=== PATIENT | male | born 1990 | race Caucasian/White ===

== ENCOUNTER 2016-09-06 19:52 | Emergency (ER) | payer OTHER ==
--- NOTE | 2016-09-06 20:36 | ED ORDER SUMMARY ---
..... Patient: ARIADNA COX [facility] VisitID: [id number] [address] [place] [address] 26y, M Registration Date/Time: 09/06/2016 ORDER SHEET Weight: 122.4 kg (stated) Allergies: Codeine, Naprosyn, Tramadol GENERAL ORDERS: Tibia/Fibula Left Urgent (20:20 09/06/2016 EKoroleva P.A.-C) (Ack 20:26 [facility] ER Material Clerk) (20:28 RFay) MEDICATION ORDERS: Tdap IM 0.5 mL (NOW, per protocol) (20:20 09/06/2016 EKoroleva P.A.-C) (20:37 DDavis R.N.) Tetanus IMmune Globulin IM 250 units (NOW) (20:20 09/06/2016 EKoroleva P.A.-C) (20:40 DDavis R.N.) Tylenol PO 1,000 mg (NOW) (20:20 09/06/2016 EKoroleva P.A.-C) (20:37 DDavis R.N.) Amoxicillin PO 500 mg (NOW) (20:20 09/06/2016 EKoroleva P.A.-C) (20:37 DDavis R.N.) Bactrim DS PO (Tablet 800-160 mg) 1 tab (NOW) (20:20 09/06/2016 EKoroleva P.A.-C) (20:38 DDavis R.N.) IV FLUIDS: ORDER SHEET NOTES: [Electronically signed by Dasia Chou PRosauraA.-C (20:41 09/06/2016)] [Electronically signed by Christofer Mills R.N. (20:53 09/06/2016)] [Electronically locked/signed by Christofer Mills R.N. (20:53 09/06/2016)]
--- NOTE | 2016-09-06 20:36 | ED ORDER SUMMARY ---
..... Patient: ARIADNA COX OrderSheet [facility] VisitID: [id number] [address] [place] [address] 26y, M Registration Date/Time: 09/06/2016 ORDER SHEET Weight: 122.4 kg (stated) Allergies: Codeine, Naprosyn, Tramadol GENERAL ORDERS: Tibia/Fibula Left Urgent (20:20 09/06/2016 EKoroleva P.A.-C) (Ack 20:26 [facility] ER Checker) (20:28 RFay) MEDICATION ORDERS: Tdap IM 0.5 mL (NOW, per protocol) (20:20 09/06/2016 EKoroleva P.A.-C) (20:37 DDavis R.N.) Tetanus IMmune Globulin IM 250 units (NOW) (20:20 09/06/2016 EKoroleva P.A.-C) (20:40 DDavis R.N.) Tylenol PO 1,000 mg (NOW) (20:20 09/06/2016 EKoroleva P.A.-C) (20:37 DDavis R.N.) Amoxicillin PO 500 mg (NOW) (20:20 09/06/2016 EKoroleva P.A.-C) (20:37 DDavis R.N.) Bactrim DS PO (Tablet 800-160 mg) 1 tab (NOW) (20:20 09/06/2016 EKoroleva P.A.-C) (20:38 DDavis R.N.) IV FLUIDS: ORDER SHEET NOTES: [Electronically signed by Dasia Chou PRosauraA.-C (20:41 09/06/2016)] [Electronically signed by Christofer Mills R.N. (20:53 09/06/2016)] [Electronically locked/signed by Christofer Mills R.N. (20:53 09/06/2016)]
--- NOTE | 2016-09-06 20:36 | ED NURSING NOTES ---
Clinical Report - Nurses [facility] [address] [place] [address] 09/06/2016 19:56 Patient: ARIADNA COX TRIAGE Triage time 20:10. Acuity: LEVEL 4. Chief Complaint: INJURY TO THE LEFT LEG. Alert. HUMBERTO COMA SCORE: [place] Coma Scale: 15- eyes open spontaneously (4); best verbal response- oriented x 4 (5); best motor response- obeys commands (6). --20:12 Christofer Mills R.N. 20:09 09/06/16. BP: 157/99 taken while sitting. HR: 96. RR: 24 (regular and unlabored). O2 saturation: 97% on room air. Temp: 98.4 F (oral). Pain level now: 12/03. --20:12 Christofer Mills R.N. Weight: 122.4 kg stated. Height/Length: 77 inches Per Patient. BMI: 32. --20:10 Christofer Mills R.N. Medications Xanax Oral 1 mg, 2x a day, last dose 0900. --20:12 Christofer Mills R.N. ClonazePAM Oral. --20:13 Christofer Mills R.N. Depakote Oral. --20:13 Christofer Mills R.N. Adderall Oral. --20:13 Christofer Mills R.N. Allergies Codeine. ("makes it hard to breath" ) Naprosyn.(hives) Tramadol. ("messes with my breathing" ) --20:12 Christofer Mills R.N. History Arrived by private vehicle. Historian: patient. Unaccompanied. This occurred yesterday. Mechanism of injury: (puncture). ( pt states that he was opening a box with a pair of scissors and "accidently stabbed myself in the leg".). SOCIAL HX: Heavy tobacco smoker (cigarette)- 1 pack per day. Occasional alcohol use. ( denies SI/HI, states that he feels safe at home.). SELF HARM ASSESSMENT: A self harm assessment was performed. The patient answered "no" to the question "Do you have thoughts of harming or killing yourself?" and "Are you here because you tried to hurt yourself?". --20:12 Christofer Mills R.N. PAST MEDICAL HX: Tetanus status: unknown. --20:14 Christofer Mills R.N. PROBLEMS: Back Pain. Myofascial Strain. Nephrolithiasis. Anxiety Reaction. Panic disorder. Substance Abuse. Sleep Apnea. Depression. Asthma. Pyelonephritis. Epididymitis. Gastritis. Cancer. Anxiety. --20:13 Christofer Mills R.N. ADDITIONAL SURGERIES: Adenoidectomy. Cholecystectomy. Foot. Rhinoplasty. Sinus Surgery. Throat shaved related to sleep apnea. Tonsillectomy. Uvula removed. --20:14 Christofer Mills R.N. Interventions ID band on patient. To room. --20:12 Christofer Mills R.N. PHYSICAL ASSESSMENT GENERAL / NEURO / PSYCH: Oriented X 4. Alert. SKIN: Skin is warm and dry. Skin not intact. ( left lower leg puncture wound, not currenty bleeding). --20:15 Christofer Mills R.N. EXTREMITIES: Neuro-vascular status intact to the extremity. --20:16 Christofer Mills R.N. NURSING PROGRESS NOTES Neuro-vascular extremity check. Two patient identifiers checked. Call light placed in reach. Side rails up x 1. Bed placed in lowest position. Brakes of bed on. Patient ready for evaluation- chart flagged. Patient waiting for evaluation. --20:15 Christofer Mills R.N. 20:32 09/06/2016 Tylenol (Acetaminophen) PO Tablets 1000 mg given. Allergies verified and confirmed 5 rights. --20:37 Christofer Mills R.N. <<STRICKEN ENTRY-- 20:32 09/06/2016 Amoxicillin PO Tablets 500 mg given. Allergies verified and confirmed 5 rights. --20:37 Christofer Mills R.N. --END STRIKE>> Correction. --20:39 Christofer Mills R.N. 20:32 09/06/2016 Bactrim DS (Sulfamethoxazole-TMP DS) PO Tablets 1 tab given. Allergies verified and confirmed 5 rights. --20:38 Christofer Mills R.N. 20:32 09/06/2016 Amoxicillin PO Capsules 500 mg given. Allergies verified and confirmed 5 rights. --20:39 Christofer Mills R.N. 20:37 09/06/2016 TDAP IM 0.5 mL given. (Lot#: [id number], expiration date: 09/03/2018, Fitter'S Assistant: sanofi pasteur). Given in the left gluteus frank. Allergies verified and confirmed 5 rights. Vaccine information statement provided to the patient. --20:37 Christofer Mills R.N. 20:37 09/06/2016 Tetanus Immune Globulin IM 250 unit given. (Lot#: [id number], expiration date: 11/09/2018). Given in the left gluteus frank. Allergies verified and confirmed 5 rights. Vaccine information statement provided to the patient (Fitter'S Assistant: [employer]). --20:40 Christofer Mills R.N. ( I cleansed the wound surface and covered it with a bandage.). --20:52 Christofer Mills R.N. DISPOSITION / DISCHARGE Departure time: 20:52. Condition at departure: stable. No learning barriers present. Discharge instructions provided and reviewed. Reviewed warnings. Reviewed medication(s) side effects, precautions, dosing and course information. Prescription(s) given to the patient. Treatments reviewed. Reviewed referrals for followup. Patient verbalized understanding. Written instructions provided in Kiny[place]anda. The patient was discharged home and unaccompanied at time of discharge. He left the Emergency Department ambulatory and via private vehicle. Patient driving. --20:53 Christofer Mills R.N. 20:09 09/06/16. BP: 157/99 taken while sitting. HR: 96. RR: 24 (regular and unlabored). O2 saturation: 97% on room air. Temp: 98.4 F (oral). Pain level now: 12/03. --20:53 Christofer Mills R.N. Locked/Released at 09/06/2016 20:53 by Christofer Mills R.N.
--- NOTE | 2016-09-06 20:36 | ED CLINICAL REPORT ---
Clinical Report - Physicians/Mid Levels [facility] [address] [place] [place] [address] 09/06/2016 19:56 Patient: ARIADNA COX Time Seen: 20:34 Sep 06 2016. Arrived- By private vehicle. Historian- patient. HISTORY OF PRESENT ILLNESS Chief Complaint: Injury to the left ankle. The injury happened yesterday. The patient sustained a direct blow and crush injury. Occurred at home. Patient is experiencing mild pain. Patient denies injury to the head. (patient sustained an injury yesterday on 05 September from a scissors while at home. Denies any suicidal ideation. Reports placing dressings on the wound yesterday, now worsening of pain and swelling. He denies prior injury to the area. Denies fevers or chills.). REVIEW OF SYSTEMS The patient has no pain on weight bearing. All systems otherwise negative, except as recorded above. PAST HISTORY See nurses notes. The patient has not had a prior injury to the same area. Tetanus immunization status is unknown. SOCIAL HISTORY Smoker- current status unknown. Alcohol use. ADDITIONAL NOTES The nursing notes have been reviewed. PHYSICAL EXAM Vital Signs: 09/06/2016 20:09 BP: 157/99. HR: 96. RR: 24. O2 saturation: 97%. Temp: 98.4 F. Pain level now: 8/10. Appearance: Alert. Head: Head atraumatic. ENT: Ears normal. CVS: Normal heart rate and rhythm. Heart sounds normal. Respiratory: No respiratory distress. Breath sounds normal. Abdomen: No visible injury. Soft. Skin: Skin warm. Extremities: Foot/ankle soft-tissue tenderness. Left leg. (medial/ anterior aspect 1 cm partial thickness lac with mild surrounding erythema/ edema.). Left ankle. No tenderness or swelling. Left foot. Neurovascular intact distally. No tenderness or swelling. No limitation of weight bearing. No foot injury. Gait: No limping gait. Neuro, Vascular and Tendons: Vascular status intact. Motor intact. LABS, X-RAYS, AND EKG Lt Tib/Fib X-ray: (IMPRESSION: 1. Normal left tibia and fibula. Electronically Final signed by:Zen Gerardo MD 09/06/2016 8:33:24 PM). PROGRESS AND PROCEDURES Course of Care: Afebrile no lymphadenopathy, no signs of fracture on x-ray. Tetanus immunization and immunoglobulin given in the emergency department. Patient stable. started on antibiotics. No history of MRSA. To elevate lower extremity. Good passive range of motion, distal sensation and good distal dorsalis pedal pulse. 09/06/2016 20:09 BP: 157/99. HR: 96. RR: 24. O2 saturation: 97%. Temp: 98.4 F. Pain level now: 12/03. Patient is stable. Symptoms better. Patient/family counseled. Disposition: Discharged. CLINICAL IMPRESSION Infected puncture wound to the left ankle. Delayed treatment. No infected puncture wound with foreign body present. Not penetrating into body cavity. INSTRUCTIONS Apply ice. Protect wound and keep wound area clean. Apply bacitracin twice daily. Elevate affected areas above chest level. (elevate your leg do not wrap your leg very tight). Warnings: TETANUS: You were given a tetanus shot during your visit. Make a note for future reference. Prescription Medications: Hydrocodone/APAP 5mg / 325mg: take 1 orally every 12 hours. Dispense five (5). No refill. Cephalexin 500 mg: take 1 capsule orally every 8 hours for 7 days. No refill. Ibuprofen 800 mg tablets: take 1 tablet orally every 8 hours for 5 days, as needed for pain. Dispense fifteen (15). No refill. Bactrim DS 800 mg / 160 mg: take 1 tablet orally every 12 hours for 7 days. No refill. Substitution is permissible. Follow-up: Follow up with your doctor in three days as needed and for wound check. (Electronically signed by Dasia Chou P.A.-C 09/06/2016 20:41)
--- NOTE | 2016-09-06 20:36 | ED NURSING NOTES ---
Clinical Report - Nurses [facility] [address] [place] [address] 09/06/2016 19:56 Patient: ARIADNA COX TRIAGE Triage time 20:10. Acuity: LEVEL 4. Chief Complaint: INJURY TO THE LEFT LEG. Alert. HUMBERTO COMA SCORE: [place] Coma Scale: 15- eyes open spontaneously (4); best verbal response- oriented x 4 (5); best motor response- obeys commands (6). --20:12 Christofer Mills R.N. 20:09 09/06/16. BP: 157/99 taken while sitting. HR: 96. RR: 24 (regular and unlabored). O2 saturation: 97% on room air. Temp: 98.4 F (oral). Pain level now: 12/03. --20:12 Christofer Mills R.N. Weight: 122.4 kg stated. Height/Length: 77 inches Per Patient. BMI: 32. --20:10 Christofer Mills R.N. Medications Xanax Oral 1 mg, 2x a day, last dose 0900. --20:12 Christofer Mills R.N. ClonazePAM Oral. --20:13 Christofer Mills R.N. Depakote Oral. --20:13 Christofer Mills R.N. Adderall Oral. --20:13 Christofer Mills R.N. Allergies Codeine. ("makes it hard to breath" ) Naprosyn.(hives) Tramadol. ("messes with my breathing" ) --20:12 Christofer Mills R.N. History Arrived by private vehicle. Historian: patient. Unaccompanied. This occurred yesterday. Mechanism of injury: (puncture). ( pt states that he was opening a box with a pair of scissors and "accidently stabbed myself in the leg".). SOCIAL HX: Heavy tobacco smoker (cigarette)- 1 pack per day. Occasional alcohol use. ( denies SI/HI, states that he feels safe at home.). SELF HARM ASSESSMENT: A self harm assessment was performed. The patient answered "no" to the question "Do you have thoughts of harming or killing yourself?" and "Are you here because you tried to hurt yourself?". --20:12 Christofer Mills R.N. PAST MEDICAL HX: Tetanus status: unknown. --20:14 Christofer Mills R.N. PROBLEMS: Back Pain. Myofascial Strain. Nephrolithiasis. Anxiety Reaction. Panic disorder. Substance Abuse. Sleep Apnea. Depression. Asthma. Pyelonephritis. Epididymitis. Gastritis. Cancer. Anxiety. --20:13 Christofer Mills R.N. ADDITIONAL SURGERIES: Adenoidectomy. Cholecystectomy. Foot. Rhinoplasty. Sinus Surgery. Throat shaved related to sleep apnea. Tonsillectomy. Uvula removed. --20:14 Christofer Mills R.N. Interventions ID band on patient. To room. --20:12 Christofer Mills R.N. PHYSICAL ASSESSMENT GENERAL / NEURO / PSYCH: Oriented X 4. Alert. SKIN: Skin is warm and dry. Skin not intact. ( left lower leg puncture wound, not currenty bleeding). --20:15 Christofer Mills R.N. EXTREMITIES: Neuro-vascular status intact to the extremity. --20:16 Christofer Mills R.N. NURSING PROGRESS NOTES Neuro-vascular extremity check. Two patient identifiers checked. Call light placed in reach. Side rails up x 1. Bed placed in lowest position. Brakes of bed on. Patient ready for evaluation- chart flagged. Patient waiting for evaluation. --20:15 Christofer Mills R.N. 20:32 09/06/2016 Tylenol (Acetaminophen) PO Tablets 1000 mg given. Allergies verified and confirmed 5 rights. --20:37 Christofer Mills R.N. <<STRICKEN ENTRY-- 20:32 09/06/2016 Amoxicillin PO Tablets 500 mg given. Allergies verified and confirmed 5 rights. --20:37 Christofer Mills R.N. --END STRIKE>> Correction. --20:39 Christofer Mills R.N. 20:32 09/06/2016 Bactrim DS (Sulfamethoxazole-TMP DS) PO Tablets 1 tab given. Allergies verified and confirmed 5 rights. --20:38 Christofer Mills R.N. 20:32 09/06/2016 Amoxicillin PO Capsules 500 mg given. Allergies verified and confirmed 5 rights. --20:39 Christofer Mills R.N. 20:37 09/06/2016 TDAP IM 0.5 mL given. (Lot#: [id number], expiration date: 09/03/2018, Ophthalmic Medical Technician: sanofi pasteur). Given in the left gluteus frank. Allergies verified and confirmed 5 rights. Vaccine information statement provided to the patient. --20:37 Christofer Mills R.N. 20:37 09/06/2016 Tetanus Immune Globulin IM 250 unit given. (Lot#: [id number], expiration date: 11/09/2018). Given in the left gluteus frank. Allergies verified and confirmed 5 rights. Vaccine information statement provided to the patient (Ophthalmic Medical Technician: [employer]er[employer]). --20:40 Christofer Mills R.N. ( I cleansed the wound surface and covered it with a bandage.). --20:52 Christofer Mills R.N. DISPOSITION / DISCHARGE Departure time: 20:52. Condition at departure: stable. No learning barriers present. Discharge instructions provided and reviewed. Reviewed warnings. Reviewed medication(s) side effects, precautions, dosing and course information. Prescription(s) given to the patient. Treatments reviewed. Reviewed referrals for followup. Patient verbalized understanding. Written instructions provided in Urdu. The patient was discharged home and unaccompanied at time of discharge. He left the Emergency Department ambulatory and via private vehicle. Patient driving. --20:53 Christofer Mills R.N. 20:09 09/06/16. BP: 157/99 taken while sitting. HR: 96. RR: 24 (regular and unlabored). O2 saturation: 97% on room air. Temp: 98.4 F (oral). Pain level now: 12/03. --20:53 Christofer Mills R.N. Locked/Released at 09/06/2016 20:53 by Christofer Mills R.N.
--- NOTE | 2016-09-06 20:37 | DIAGNOSTIC IMAGING REPORT ---
PROCEDURE: XR TIBIA AND FIBULA - LEFT INDICATION: TRAUMA/INJURY TECHNIQUE: AP and lateral views. COMPARISON: None. FINDINGS: Osseous structures are normal. IMPRESSION: 1. Normal left tibia and fibula.
--- NOTE | 2016-09-06 20:54 | ED DISCHARGE INSTRUCTIONS ---
Patient: ARIADNA COX General Instructions [facility] VisitID: [id number] [place] [address] 26y, M Registration Date/Time: 09/06/2016 Infected puncture wound to the left ankle. Delayed treatment. No infected puncture wound with foreign body present. Not penetrating into body cavity. INSTRUCTIONS Apply ice. Protect wound and keep wound area clean. Apply bacitracin twice daily. Elevate affected areas above chest level. (elevate your leg do not wrap your leg very tight). Warnings: TETANUS: You were given a tetanus shot during your visit. Make a note for future reference. Prescription Medications: Hydrocodone/APAP 5mg / 325mg: take 1 orally every 12 hours. Dispense five (5). No refill. Cephalexin 500 mg: take 1 capsule orally every 8 hours for 7 days. No refill. Ibuprofen 800 mg tablets: take 1 tablet orally every 8 hours for 5 days, as needed for pain. Dispense fifteen (15). No refill. Bactrim DS 800 mg / 160 mg: take 1 tablet orally every 12 hours for 7 days. No refill. Substitution is permissible. Follow-up: Follow up with your doctor in three days as needed and for wound check. ADDITIONAL INFORMATION Puncture Wound (General) A puncture wound is a hole through the skin. Bacteria, dirt and debris can be drawn into this wound, increasing the risk of infection. However, antibiotics are usually not prescribed for this injury unless signs of infection are already present. Therefore, it is important to observe the wound closely for the signs of infection listed below. Home Care: If your wound is on an arm, hand, leg, or foot, keep that part raised during the first 48 hours to reduce swelling and pain. Keep the wound clean and dry. If a bandage was applied and it becomes wet or dirty, replace it. Otherwise, leave it in place for the next 24 hours. You may use acetaminophen (Tylenol) or ibuprofen (Motrin, Advil) to control pain, unless another medicine was prescribed. [NOTE: If you have chronic liver or kidney disease or ever had a stomach ulcer or GI bleeding, talk with your doctor before using these medicines.] You may shower as usual. However, do not soak the area in water (no baths or swimming) during the first 48 hours. Follow Up: Most puncture wounds heal within 10 days. However, an infection may sometimes occur despite proper treatment. If small particles were drawn into the puncture wound (such as fragments of cloth, rubber, wood or dirt), an infection may occur. These fragments are very hard to find during the first exam since it is not possible to get a good look inside a puncture wound and they do not show on an X-ray. Antibiotics and a minor surgical procedure to find and remove the foreign object will be needed if this happens. Therefore, check the wound daily for the warning signs listed below. Get Prompt Medical Attention if any of the following occur: SIGNS OF INFECTION: Increasing pain in the wound Redness, swelling, pus or red lines coming from the wound Fever of 100.4F (38C) or higher, or as directed by your healthcare provider Diphtheria Toxoid Adsorbed, Pertussis Vaccine, Acellular (Adsorbed), Tetanus Toxoid, Adsorbed Suspension for injection What is this medicine? DIPHTHERIA and TETANUS TOXOIDS; PERTUSSIS VACCINE (dif THEER ee uh and TET n us TOK soids; per NADEEM nergo SEEN) is used to prevent diphtheria, tetanus, and pertussis infections. How should I use this medicine? This vaccine is for injection into a muscle. It is given by a health clinical care leader. A copy of Vaccine Information Statements will be given before each vaccination. Read this sheet carefully each time. The sheet may change frequently. Talk to your direct service provider regarding the use of this vaccine in children. While the DTP vaccine may be given to children ages 6 weeks to 7 years and the Tdap vaccine may be given to children at least 10 years old, precautions do apply. What side effects may I notice from receiving this medicine? Side effects that you should report to your doctor or health clinical care leader as soon as possible: allergic reactions like skin rash, itching or hives, swelling of the face, lips, or tongue breathing problems fever of 103 degrees F or more flu-like symptoms inconsolable crying infection pain, tingling, numbness in the hands or feet seizures swelling of arm or leg that was injected unusually weak or tired Side effects that usually do not require immediate medical attention (report these side effects to your doctor or health clinical care leader if they continue or are bothersome): fussy, irritable loss of appetite fever of 102 degrees F or less pain, tenderness, redness, swelling, or a 'knot' at site where injected vomiting What may interact with this medicine? immune globulin medicines that suppress your immune function like adalimumab, anakinra, infliximab medicines to treat cancer medicines that treat or prevent blood clots like warfarin, enoxaparin, and dalteparin steroid medicines like prednisone or cortisone What if I miss a dose? It is important not to miss your dose. Call your doctor or health clinical care leader if you are unable to keep an appointment. Where should I keep my medicine? This drug is given in a hospital or clinic and will not be stored at home. What should I tell my health care provider before I take this medicine? They need to know if you have any of these conditions: blood disorders like hemophilia fever or infection immune system problems neurologic disease seizures an unusual or allergic reaction to vaccines, thimerosal, latex, other medicines, foods, dyes, or preservatives or trying to get breast-feeding What should I watch for while using this medicine? See your health care provider for all shots of this vaccine as directed. To have protection from infection, you must have 3 shots of this vaccine plus boosters as needed. Tell your doctor right away if you have any serious or unusual side effects after getting this vaccine. Hydrocodone Bitartrate, Acetaminophen Oral tablet What is this medicine? ACETAMINOPHEN; HYDROCODONE (a set a JESSI mookie fen; monserrat droe KOE done) is a pain reliever. It is used to treat mild to moderate pain. How should I use this medicine? Take this medicine by mouth. Swallow it with a full glass of water. Follow the directions on the prescription label. If the medicine upsets your stomach, take the medicine with food or milk. Do not take more than you are told to take. Talk to your direct service provider regarding the use of this medicine in children. This medicine is not approved for use in children. What side effects may I notice from receiving this medicine? Side effects that you should report to your doctor or health clinical care leader as soon as possible: allergic reactions like skin rash, itching or hives, swelling of the face, lips, or tongue breathing problems confusion feeling faint or lightheaded, falls stomach pain yellowing of the eyes or skin Side effects that usually do not require medical attention (report to your doctor or health clinical care leader if they continue or are bothersome): nausea, vomiting stomach upset What may interact with this medicine? alcohol antihistamines isoniazid medicines for depression, anxiety, or psychotic disturbances medicines for sleep muscle relaxants naltrexone narcotic medicines (opiates) for pain phenobarbital ritonavir tramadol What if I miss a dose? If you miss a dose, take it as soon as you can. If it is almost time for your next dose, take only that dose. Do not take double or extra doses. Where should I keep my medicine? Keep out of the reach of children. This medicine can be abused. Keep your medicine in a safe place to protect it from theft. Do not share this medicine with anyone. Selling or giving away this medicine is dangerous and against the law. Store at room temperature between 15 and 30 degrees C (59 and 86 degrees F). Protect from light. Keep container tightly closed. Throw away any unused medicine after the expiration date. Discard unused medicine and used packaging carefully. Pets and children can be harmed if they find used or lost packages. What should I tell my health care provider before I take this medicine? They need to know if you have any of these conditions: brain tumor Crohn's disease, inflammatory bowel disease, or ulcerative colitis drink more than 3 alcohol-containing drinks per day drug abuse or addiction head injury heart or circulation problems kidney disease or problems going to the bathroom liver disease lung disease, asthma, or breathing problems an unusual or allergic reaction to acetaminophen, hydrocodone, other opioid analgesics, other medicines, foods, dyes, or preservatives or trying to get breast-feeding What should I watch for while using this medicine? Tell your doctor or health clinical care leader if your pain does not go away, if it gets worse, or if you have new or a different type of pain. You may develop tolerance to the medicine. Tolerance means that you will need a higher dose of the medicine for pain relief. Tolerance is normal and is expected if you take the medicine for a long time. Do not suddenly stop taking your medicine because you may develop a severe reaction. Your body becomes used to the medicine. This does NOT mean you are addicted. Addiction is a behavior related to getting and using a drug for a non-medical reason. If you have pain, you have a medical reason to take pain medicine. Your doctor will tell you how much medicine to take. If your doctor wants you to stop the medicine, the dose will be slowly lowered over time to avoid any side effects. You may get drowsy or dizzy when you first start taking the medicine or change doses. Do not drive, use machinery, or do anything that may be dangerous until you know how the medicine affects you. Stand or sit up slowly. There are different types of narcotic medicines (opiates) for pain. If you take more than one type at the same time, you may have more side effects. Give your health care provider a list of all medicines you use. Your doctor will tell you how much medicine to take. Do not take more medicine than directed. Call emergency for help if you have problems breathing. The medicine will cause constipation. Try to have a bowel movement at least every 2 to 3 days. If you do not have a bowel movement for 3 days, call your doctor or health clinical care leader. Too much acetaminophen can be very dangerous. Do not take Tylenol (acetaminophen) or medicines that contain acetaminophen with this medicine. Many non-prescription medicines contain acetaminophen. Always read the labels carefully. Cephalexin Monohydrate Oral tablet What is this medicine? CEPHALEXIN (sef a RIVKA in) is a cephalosporin antibiotic. It is used to treat certain kinds of bacterial infections It will not work for colds, flu, or other viral infections. How should I use this medicine? Take this medicine by mouth with a full glass of water. Follow the directions on the prescription label. This medicine can be taken with or without food. Take your medicine at regular intervals. Do not take your medicine more often than directed. Take all of your medicine as directed even if you think you are better. Do not skip doses or stop your medicine early. Talk to your direct service provider regarding the use of this medicine in children. While this drug may be prescribed for selected conditions, precautions do apply. What side effects may I notice from receiving this medicine? Side effects that you should report to your doctor or health clinical care leader as soon as possible: allergic reactions like skin rash, itching or hives, swelling of the face, lips, or tongue breathing problems pain or trouble passing urine redness, blistering, peeling or loosening of the skin, including inside the mouth severe or watery diarrhea unusually weak or tired yellowing of the eyes, skin Side effects that usually do not require medical attention (report to your doctor or health clinical care leader if they continue or are bothersome): gas or heartburn genital or anal irritation headache joint or muscle pain nausea, vomiting What may interact with this medicine? probenecid some other antibiotics What if I miss a dose? If you miss a dose, take it as soon as you can. If it is almost time for your next dose, take only that dose. Do not take double or extra doses. There should be at least 4 to 6 hours between doses. Where should I keep my medicine? Keep out of the reach of children. Store at room temperature between 59 and 86 degrees F (15 and 30 degrees C). Throw away any unused medicine after the expiration date. What should I tell my health care provider before I take this medicine? They need to know if you have any of these conditions: kidney disease stomach or intestine problems, especially colitis an unusual or allergic reaction to cephalexin, other cephalosporins, penicillins, other antibiotics, medicines, foods, dyes or preservatives or trying to get breast-feeding What should I watch for while using this medicine? Tell your doctor or health clinical care leader if your symptoms do not begin to improve in a few days. Do not treat diarrhea with over the counter products. Contact your doctor if you have diarrhea that lasts more than 2 days or if it is severe and watery. If you have diabetes, you may get a false-positive result for sugar in your urine. Check with your doctor or health clinical care leader. You have been given the following additional information: Puncture Wound, General Diphtheria Toxoid Adsorbed, Pertussis Vaccine, Acellular (Adsorbed), Tetanus Toxoid, Adsorbed Suspension for injection Hydrocodone Bitartrate, Acetaminophen Oral tablet Cephalexin Monohydrate Oral tablet (Electronically signed by Dasia Chou P.A.-C 09/06/2016 20:41)
--- NOTE | 2016-09-06 20:54 | ED MED RECONCILIATION SUMMARY ---
Patient: ARIADNA COX Medication Reconciliation Report [facility] VisitID: [id number] [address] [place] [address] 26y, M Registration Date/Time: 09/06/2016 Weight: 122.4 kg Height/Length: 77 in. BMI: 32.0 ALLERGIES: Codeine, Naprosyn, Tramadol The patient's Home Medications are listed below: THE FOLLOWING MEDICATIONS NEED TO BE RECONCILED: Adderall Oral ClonazePAM Oral Depakote Oral Xanax Oral 1 mg, 2x a day, last dose: 0900 The source(s) of the original Home Medication information: Not obtained. The following Medications were given to the patient in the Emergency Department: TDAP [IM] IM 0.5 mL, administered: 09/06/2016 8:37:00 PM Tylenol [PO] PO 1000 mg, administered: 09/06/2016 8:32:00 PM Amoxicillin [PO] PO 500 mg, administered: 09/06/2016 8:32:00 PM Bactrim DS [PO] PO 1 tab, administered: 09/06/2016 8:32:00 PM Tetanus Immune Globulin [IM] IM 250 unit, administered: 09/06/2016 8:37:00 PM The following Medications were prescribed to the patient: Hydrocodone/APAP 5mg / 325mg: take 1 orally every 12 hours. Dispense five (5). No refill. -- Dasia Chou, P.A.-C Cephalexin 500 mg: take 1 capsule orally every 8 hours for 7 days. No refill. -- Dasia Chou, P.A.-C Ibuprofen 800 mg tablets: take 1 tablet orally every 8 hours for 5 days, as needed for pain. Dispense fifteen (15). No refill. -- Dasia Chou, P.A.-C Bactrim DS 800 mg / 160 mg: take 1 tablet orally every 12 hours for 7 days. No refill. Substitution is permissible. -- Dasia Chou, P.A.-C
--- NOTE | 2016-09-06 20:54 | ED DISCHARGE INSTRUCTIONS ---
Patient: ARIADNA COX General Instructions [facility] VisitID: [id number] [place] [address] 26y, M Registration Date/Time: 09/06/2016 Infected puncture wound to the left ankle. Delayed treatment. No infected puncture wound with foreign body present. Not penetrating into body cavity. INSTRUCTIONS Apply ice. Protect wound and keep wound area clean. Apply bacitracin twice daily. Elevate affected areas above chest level. (elevate your leg do not wrap your leg very tight). Warnings: TETANUS: You were given a tetanus shot during your visit. Make a note for future reference. Prescription Medications: Hydrocodone/APAP 5mg / 325mg: take 1 orally every 12 hours. Dispense five (5). No refill. Cephalexin 500 mg: take 1 capsule orally every 8 hours for 7 days. No refill. Ibuprofen 800 mg tablets: take 1 tablet orally every 8 hours for 5 days, as needed for pain. Dispense fifteen (15). No refill. Bactrim DS 800 mg / 160 mg: take 1 tablet orally every 12 hours for 7 days. No refill. Substitution is permissible. Follow-up: Follow up with your doctor in three days as needed and for wound check. ADDITIONAL INFORMATION Puncture Wound (General) A puncture wound is a hole through the skin. Bacteria, dirt and debris can be drawn into this wound, increasing the risk of infection. However, antibiotics are usually not prescribed for this injury unless signs of infection are already present. Therefore, it is important to observe the wound closely for the signs of infection listed below. Home Care: If your wound is on an arm, hand, leg, or foot, keep that part raised during the first 48 hours to reduce swelling and pain. Keep the wound clean and dry. If a bandage was applied and it becomes wet or dirty, replace it. Otherwise, leave it in place for the next 24 hours. You may use acetaminophen (Tylenol) or ibuprofen (Motrin, Advil) to control pain, unless another medicine was prescribed. [NOTE: If you have chronic liver or kidney disease or ever had a stomach ulcer or GI bleeding, talk with your doctor before using these medicines.] You may shower as usual. However, do not soak the area in water (no baths or swimming) during the first 48 hours. Follow Up: Most puncture wounds heal within 10 days. However, an infection may sometimes occur despite proper treatment. If small particles were drawn into the puncture wound (such as fragments of cloth, rubber, wood or dirt), an infection may occur. These fragments are very hard to find during the first exam since it is not possible to get a good look inside a puncture wound and they do not show on an X-ray. Antibiotics and a minor surgical procedure to find and remove the foreign object will be needed if this happens. Therefore, check the wound daily for the warning signs listed below. Get Prompt Medical Attention if any of the following occur: SIGNS OF INFECTION: Increasing pain in the wound Redness, swelling, pus or red lines coming from the wound Fever of 100.4F (38C) or higher, or as directed by your healthcare provider Diphtheria Toxoid Adsorbed, Pertussis Vaccine, Acellular (Adsorbed), Tetanus Toxoid, Adsorbed Suspension for injection What is this medicine? DIPHTHERIA and TETANUS TOXOIDS; PERTUSSIS VACCINE (dif THEER ee uh and TET n us TOK soids; per NADEEM negro SEEN) is used to prevent diphtheria, tetanus, and pertussis infections. How should I use this medicine? This vaccine is for injection into a muscle. It is given by a health customer care professional. A copy of Vaccine Information Statements will be given before each vaccination. Read this sheet carefully each time. The sheet may change frequently. Talk to your adapted physical education aide regarding the use of this vaccine in children. While the DTP vaccine may be given to children ages 6 weeks to 7 years and the Tdap vaccine may be given to children at least 10 years old, precautions do apply. What side effects may I notice from receiving this medicine? Side effects that you should report to your doctor or health customer care professional as soon as possible: allergic reactions like skin rash, itching or hives, swelling of the face, lips, or tongue breathing problems fever of 103 degrees F or more flu-like symptoms inconsolable crying infection pain, tingling, numbness in the hands or feet seizures swelling of arm or leg that was injected unusually weak or tired Side effects that usually do not require immediate medical attention (report these side effects to your doctor or health customer care professional if they continue or are bothersome): fussy, irritable loss of appetite fever of 102 degrees F or less pain, tenderness, redness, swelling, or a 'knot' at site where injected vomiting What may interact with this medicine? immune globulin medicines that suppress your immune function like adalimumab, anakinra, infliximab medicines to treat cancer medicines that treat or prevent blood clots like warfarin, enoxaparin, and dalteparin steroid medicines like prednisone or cortisone What if I miss a dose? It is important not to miss your dose. Call your doctor or health customer care professional if you are unable to keep an appointment. Where should I keep my medicine? This drug is given in a hospital or clinic and will not be stored at home. What should I tell my health care provider before I take this medicine? They need to know if you have any of these conditions: blood disorders like hemophilia fever or infection immune system problems neurologic disease seizures an unusual or allergic reaction to vaccines, thimerosal, latex, other medicines, foods, dyes, or preservatives or trying to get breast-feeding What should I watch for while using this medicine? See your health care provider for all shots of this vaccine as directed. To have protection from infection, you must have 3 shots of this vaccine plus boosters as needed. Tell your doctor right away if you have any serious or unusual side effects after getting this vaccine. Hydrocodone Bitartrate, Acetaminophen Oral tablet What is this medicine? ACETAMINOPHEN; HYDROCODONE (a set a JESSI mookie fen; monserrat droe KOE done) is a pain reliever. It is used to treat mild to moderate pain. How should I use this medicine? Take this medicine by mouth. Swallow it with a full glass of water. Follow the directions on the prescription label. If the medicine upsets your stomach, take the medicine with food or milk. Do not take more than you are told to take. Talk to your adapted physical education aide regarding the use of this medicine in children. This medicine is not approved for use in children. What side effects may I notice from receiving this medicine? Side effects that you should report to your doctor or health customer care professional as soon as possible: allergic reactions like skin rash, itching or hives, swelling of the face, lips, or tongue breathing problems confusion feeling faint or lightheaded, falls stomach pain yellowing of the eyes or skin Side effects that usually do not require medical attention (report to your doctor or health customer care professional if they continue or are bothersome): nausea, vomiting stomach upset What may interact with this medicine? alcohol antihistamines isoniazid medicines for depression, anxiety, or psychotic disturbances medicines for sleep muscle relaxants naltrexone narcotic medicines (opiates) for pain phenobarbital ritonavir tramadol What if I miss a dose? If you miss a dose, take it as soon as you can. If it is almost time for your next dose, take only that dose. Do not take double or extra doses. Where should I keep my medicine? Keep out of the reach of children. This medicine can be abused. Keep your medicine in a safe place to protect it from theft. Do not share this medicine with anyone. Selling or giving away this medicine is dangerous and against the law. Store at room temperature between 15 and 30 degrees C (59 and 86 degrees F). Protect from light. Keep container tightly closed. Throw away any unused medicine after the expiration date. Discard unused medicine and used packaging carefully. Pets and children can be harmed if they find used or lost packages. What should I tell my health care provider before I take this medicine? They need to know if you have any of these conditions: brain tumor Crohn's disease, inflammatory bowel disease, or ulcerative colitis drink more than 3 alcohol-containing drinks per day drug abuse or addiction head injury heart or circulation problems kidney disease or problems going to the bathroom liver disease lung disease, asthma, or breathing problems an unusual or allergic reaction to acetaminophen, hydrocodone, other opioid analgesics, other medicines, foods, dyes, or preservatives or trying to get breast-feeding What should I watch for while using this medicine? Tell your doctor or health customer care professional if your pain does not go away, if it gets worse, or if you have new or a different type of pain. You may develop tolerance to the medicine. Tolerance means that you will need a higher dose of the medicine for pain relief. Tolerance is normal and is expected if you take the medicine for a long time. Do not suddenly stop taking your medicine because you may develop a severe reaction. Your body becomes used to the medicine. This does NOT mean you are addicted. Addiction is a behavior related to getting and using a drug for a non-medical reason. If you have pain, you have a medical reason to take pain medicine. Your doctor will tell you how much medicine to take. If your doctor wants you to stop the medicine, the dose will be slowly lowered over time to avoid any side effects. You may get drowsy or dizzy when you first start taking the medicine or change doses. Do not drive, use machinery, or do anything that may be dangerous until you know how the medicine affects you. Stand or sit up slowly. There are different types of narcotic medicines (opiates) for pain. If you take more than one type at the same time, you may have more side effects. Give your health care provider a list of all medicines you use. Your doctor will tell you how much medicine to take. Do not take more medicine than directed. Call emergency for help if you have problems breathing. The medicine will cause constipation. Try to have a bowel movement at least every 2 to 3 days. If you do not have a bowel movement for 3 days, call your doctor or health customer care professional. Too much acetaminophen can be very dangerous. Do not take Tylenol (acetaminophen) or medicines that contain acetaminophen with this medicine. Many non-prescription medicines contain acetaminophen. Always read the labels carefully. Cephalexin Monohydrate Oral tablet What is this medicine? CEPHALEXIN (sef a RIVKA in) is a cephalosporin antibiotic. It is used to treat certain kinds of bacterial infections It will not work for colds, flu, or other viral infections. How should I use this medicine? Take this medicine by mouth with a full glass of water. Follow the directions on the prescription label. This medicine can be taken with or without food. Take your medicine at regular intervals. Do not take your medicine more often than directed. Take all of your medicine as directed even if you think you are better. Do not skip doses or stop your medicine early. Talk to your adapted physical education aide regarding the use of this medicine in children. While this drug may be prescribed for selected conditions, precautions do apply. What side effects may I notice from receiving this medicine? Side effects that you should report to your doctor or health customer care professional as soon as possible: allergic reactions like skin rash, itching or hives, swelling of the face, lips, or tongue breathing problems pain or trouble passing urine redness, blistering, peeling or loosening of the skin, including inside the mouth severe or watery diarrhea unusually weak or tired yellowing of the eyes, skin Side effects that usually do not require medical attention (report to your doctor or health customer care professional if they continue or are bothersome): gas or heartburn genital or anal irritation headache joint or muscle pain nausea, vomiting What may interact with this medicine? probenecid some other antibiotics What if I miss a dose? If you miss a dose, take it as soon as you can. If it is almost time for your next dose, take only that dose. Do not take double or extra doses. There should be at least 4 to 6 hours between doses. Where should I keep my medicine? Keep out of the reach of children. Store at room temperature between 59 and 86 degrees F (15 and 30 degrees C). Throw away any unused medicine after the expiration date. What should I tell my health care provider before I take this medicine? They need to know if you have any of these conditions: kidney disease stomach or intestine problems, especially colitis an unusual or allergic reaction to cephalexin, other cephalosporins, penicillins, other antibiotics, medicines, foods, dyes or preservatives or trying to get breast-feeding What should I watch for while using this medicine? Tell your doctor or health customer care professional if your symptoms do not begin to improve in a few days. Do not treat diarrhea with over the counter products. Contact your doctor if you have diarrhea that lasts more than 2 days or if it is severe and watery. If you have diabetes, you may get a false-positive result for sugar in your urine. Check with your doctor or health customer care professional. You have been given the following additional information: Puncture Wound, General Diphtheria Toxoid Adsorbed, Pertussis Vaccine, Acellular (Adsorbed), Tetanus Toxoid, Adsorbed Suspension for injection Hydrocodone Bitartrate, Acetaminophen Oral tablet Cephalexin Monohydrate Oral tablet (Electronically signed by Dasia Chou P.A.-C 09/06/2016 20:41)
--- NOTE | 2016-09-06 20:54 | ED MAR SUMMARY ---
..... Medication Administration Record [facility] [address] [place] [address] Patient: ARIADNA COX Visit ID: [id number] 26y, M Weight: 122.4 kg Height/Length: 77 in BMI: 32 ALLERGIES: Codeine, Naprosyn, Tramadol Given 2009/06/2016 Christofer Mills R.N. Medication Administered: TYLENOL [PO] (ACETAMINOPHEN), Dose: 1000 mg Tablets PO. Medication Ordered: Tylenol PO 1,000 mg (NOW). Given 20:09/06/2016 Christofer Mills R.N. Medication Administered: AMOXICILLIN [PO], Dose: 500 mg Capsules PO. Medication Ordered: Amoxicillin PO 500 mg (NOW). Given :09/06/2016 Christofer Mills R.N. Medication Administered: BACTRIM DS [PO] (SULFAMETHOXAZOLE-TMP DS), Dose: 1 tab Tablets PO. Medication Ordered: Bactrim DS PO (Tablet 800-160 mg) 1 tab (NOW). Given 2009/06/2016 Christofer Mills R.N. Medication Administered: TDAP [IM], Dose: 0.5 mL IM. Medication Ordered: Tdap IM 0.5 mL (NOW, per protocol). Given 09/06/2016 Christofer Mills R.N. Medication Administered: TETANUS IMMUNE GLOBULIN [IM], Dose: 250 unit IM. Medication Ordered: Tetanus IMmune Globulin IM 250 units (NOW).
--- NOTE | 2016-09-06 20:54 | ED MAR SUMMARY ---
..... Medication Administration Record [facility] [address] [place] [address] Patient: ARIADNA COX Visit ID: [id number] 26y, M Weight: 122.4 kg Height/Length: 77 in BMI: 32 ALLERGIES: Codeine, Naprosyn, Tramadol Given 2009/06/2016 Christofer Mills R.N. Medication Administered: TYLENOL [PO] (ACETAMINOPHEN), Dose: 1000 mg Tablets PO. Medication Ordered: Tylenol PO 1,000 mg (NOW). Given 20:09/06/2016 Christofer Mills R.N. Medication Administered: AMOXICILLIN [PO], Dose: 500 mg Capsules PO. Medication Ordered: Amoxicillin PO 500 mg (NOW). Given :09/06/2016 Christofer Mills R.N. Medication Administered: BACTRIM DS [PO] (SULFAMETHOXAZOLE-TMP DS), Dose: 1 tab Tablets PO. Medication Ordered: Bactrim DS PO (Tablet 800-160 mg) 1 tab (NOW). Given 2009/06/2016 Christofer Mills R.N. Medication Administered: TDAP [IM], Dose: 0.5 mL IM. Medication Ordered: Tdap IM 0.5 mL (NOW, per protocol). Given 09/06/2016 Christofer Mills R.N. Medication Administered: TETANUS IMMUNE GLOBULIN [IM], Dose: 250 unit IM. Medication Ordered: Tetanus IMmune Globulin IM 250 units (NOW).
--- NOTE | 2016-09-06 20:54 | ED MED RECONCILIATION SUMMARY ---
Patient: ARIADNA COX Medication Reconciliation Report [facility] VisitID: [id number] [address] [place] [address] 26y, M Registration Date/Time: 09/06/2016 Weight: 122.4 kg Height/Length: 77 in. BMI: 32.0 ALLERGIES: Codeine, Naprosyn, Tramadol The patient's Home Medications are listed below: THE FOLLOWING MEDICATIONS NEED TO BE RECONCILED: Adderall Oral ClonazePAM Oral Depakote Oral Xanax Oral 1 mg, 2x a day, last dose: 0900 The source(s) of the original Home Medication information: Not obtained. The following Medications were given to the patient in the Emergency Department: TDAP [IM] IM 0.5 mL, administered: 09/06/2016 8:37:00 PM Tylenol [PO] PO 1000 mg, administered: 09/06/2016 8:32:00 PM Amoxicillin [PO] PO 500 mg, administered: 09/06/2016 8:32:00 PM Bactrim DS [PO] PO 1 tab, administered: 09/06/2016 8:32:00 PM Tetanus Immune Globulin [IM] IM 250 unit, administered: 09/06/2016 8:37:00 PM The following Medications were prescribed to the patient: Hydrocodone/APAP 5mg / 325mg: take 1 orally every 12 hours. Dispense five (5). No refill. -- Dasia Chou, P.A.-C Cephalexin 500 mg: take 1 capsule orally every 8 hours for 7 days. No refill. -- Dasia Chou, P.A.-C Ibuprofen 800 mg tablets: take 1 tablet orally every 8 hours for 5 days, as needed for pain. Dispense fifteen (15). No refill. -- Dasia Chou, P.A.-C Bactrim DS 800 mg / 160 mg: take 1 tablet orally every 12 hours for 7 days. No refill. Substitution is permissible. -- Dasia Chou, P.A.-C
== END 2016-09-06 20:45 | disposition home or self-care (01) ==
LOC: ED SRH 19:52
DX: S91.032A Puncture wound without foreign body, left ankle, initial encounter (principal); Z23 Encounter for immunization; W23.0XXA Caught, crushed, jammed, or pinched between moving objects, initial encounter; Y93.89 Activity, other specified; Y92.019 Unspecified place in single-family (private) house as the place of occurrence of the external cause; Y99.9 Unspecified external cause status; Z79.899 Other long term (current) drug therapy; F17.210 Nicotine dependence, cigarettes, uncomplicated; Z88.5 Allergy status to narcotic agent; Z88.6 Allergy status to analgesic agent